=== PATIENT | male | born 1955 | race American Indian/Alaskan Native ===

== ENCOUNTER 2017-04-28 07:22 | Emergency (ER) | payer OTHER ==
[2017-04-28 07:36] VITALS: BP 144/80
[2017-04-28] MEDS ORDERED: TORADOL IM ONE (08:22)
--- NOTE | 2017-04-28 08:28 | Emergency Department Report ---
ED Back Pain/Injury HPI - General Chief Complaint: Back Pain/Injury Stated Complaint: LOWER BACK PAIN Time Seen by Provider: 04/28/17 08:06 Source: patient Mode of arrival: Ambulatory Limitations: No Limitations - History of Present Illness Initial Comments: PT c/o low back pain since Fri. PT denies injury or trauma. Pt states he was seen at and he was given two shots, one for pain and one steroid. PT states the shots helped for a few days but then his pain worsened. PT was given RX for Ultram and Flexeril. PT states he was dx with pinched nerve. PT states he was not given follow up. PT states no images were done. MD Complaint: back pain -: Gradual Similar Symptoms Previously: No Place: home Radiation: right leg Severity scale (0 -10): 6 Quality: burning Consistency: constant Improves With: medication (two injections at ) Worsens With: movement Context: unknown Associated Symptoms: numbness, nausea/vomiting (nausea after getting steroid shot). denies: difficulty urinating, incontinence, abdominal pain Treatments Prior to Arrival: prescription analgesics, other medications - Related Data Previous Rx's Medication Instructions Recorded Last Taken Type HYDROcodone/APAP 5-325 [Hoagland 1 each PO Q6HR PRN #10 tablet 04/28/17 Unknown Rx 5/325] Ibuprofen [Motrin] 600 mg PO Q8H PRN #15 tablet 04/28/17 Unknown Rx methOCARBAMOL [Robaxin TAB] 500 mg PO Q6H PRN #15 tablet 04/28/17 Unknown Rx Allergies Allergy/AdvReac Type Severity Reaction Status Date / Time No Known Allergies Allergy Unverified 04/28/17 07:26 ED Review of Systems ROS: Stated complaint: LOWER BACK PAIN Other details as noted in HPI Comment: All other systems reviewed and negative Constitutional: denies: fever Cardiovascular: denies: edema, syncope Gastrointestinal: nausea (after taking steroid shot). denies: vomiting Genitourinary: denies: urgency, dysuria, frequency Musculoskeletal: back pain Neurological: paresthesias ED Past Medical Hx - Past Medical History Previous Medical History?: No - Surgical History Past Surgical History?: No - Social History Smoking Status: Former Smoker Substance Use Type: None - Medications Home Medications: Home Medications Medication Instructions Recorded Confirmed Last Taken Type HYDROcodone/APAP 5-325 [Hoagland 1 each PO Q6HR PRN #10 tablet 12/11/17 Unknown Rx 5/325] Ibuprofen [Motrin] 600 mg PO Q8H PRN #15 tablet 04/28/17 Unknown Rx methOCARBAMOL [Robaxin TAB] 500 mg PO Q6H PRN #15 tablet 04/28/17 Unknown Rx ED Physical Exam - General Limitations: No Limitations General appearance: alert, in no apparent distress - Head Head exam: Present: atraumatic, normocephalic, normal inspection - Eye Eye exam: Present: normal appearance, PERRL, EOMI. Absent: conjunctival injection - ENT ENT exam: Present: normal exam, normal external ear exam - Neck Neck exam: Present: normal inspection, full ROM - Respiratory Respiratory exam: Present: normal lung sounds bilaterally. Absent: respiratory distress, wheezes, chest wall tenderness, accessory muscle use - Cardiovascular Cardiovascular Exam: Present: regular rate, normal rhythm, normal heart sounds - GI/Abdominal GI/Abdominal exam: Present: soft. Absent: tenderness, guarding, rebound - Extremities Exam Extremities exam: Present: normal inspection, full ROM. Absent: tenderness, calf tenderness - Back Exam Back exam: Present: normal inspection, full ROM, tenderness, muscle spasm, paraspinal tenderness - Expanded Back Exam Expanded Back exam: Absent: saddle anesthesia Back exam: Sciatic Notch Tenderness: Right, Negative Straight Leg Raising: Left , Right - Neurological Exam Neurological exam: Present: alert, oriented X3, abnormal gait (ambulates with slight limp) - Psychiatric Psychiatric exam: Present: normal affect, normal mood - Skin Skin exam: Present: warm, dry, intact ED Course Vital Signs 04/28/17 07:34 Temperature 98.4 F Pulse Rate 78 Respiratory 16 Rate Blood Pressure 144/80 [Left] O2 Sat by Pulse 98 Oximetry - Reevaluation(s) Reevaluation #1: 04/28/17 08:31 PT aware of plan of care. Reevaluation #2: 04/28/17 09:57 PT aware of XR results. PT requesting a steroid shot. PT aware he will need to follow up with PCP/Neurosurgeon for his lbp. Pt aware he may need an outpt MRI of L spine. PT has no questions at this time. Reevaluation #3: 04/28/17 10:10 PT states he has Tylenol #3 at home from old RX from his Dentist and it did not help his pain. PT's fill hx looked up in [place] [employer] aware web site. Tylenol #3 filled 01-23-17 and one time in November. - Pulse Oximetry Interpretation Digit-Finger Initial Pulse Oximetry Readin Actions Taken: none ED Medical Decision Making - Radiology Data Radiology results: report reviewed XR L spine - lumbar spondylosis - Differential Diagnosis strain, sciatica, Critical Care Time: No Critical care attestation.: If time is entered above; I have spent that time in minutes in the direct care of this critically ill patient, excluding procedure time. ED Disposition Clinical Impression: Low back pain Qualifiers: Chronicity: acute Back pain laterality: right Sciatica presence: with sciatica Sciatica laterality: sciatica of right side Qualified Code(s): M54.41 - Lumbago with sciatica, right side Disposition: TO HOME OR SELFCARE Is pt being admited?: No Does the pt Need Aspirin: No Condition: Stable Instructions: Sciatica (ED), Lumbar Radiculopathy (ED), Degenerative Disc Disease (ED) Additional Instructions: Follow up with PCP or Neurosurgery in 3-5 days Return to the ED if worsening symptoms, or concerns Stop Flexeril and Ultram No driving or ETOH after taking Robaxin or Hoagland Prescriptions: HYDROcodone/APAP 5-325 [Hoagland 5/325] 1 each PO Q6HR PRN #10 tablet PRN Reason: Pain Ibuprofen [Motrin] 600 mg PO Q8H PRN #15 tablet PRN Reason: Pain methOCARBAMOL [Robaxin TAB] 500 mg PO Q6H PRN #15 tablet PRN Reason: Muscle Spasm Referrals: PRIMARY CAREMD [Primary Care Provider] - 3-5 Days KIYA ABRAHAM MD [Staff Physician] - 3-5 Days HOLLY PRATHER MD [Staff Physician] - 3-5 Days [facility] [Outside] - 3-5 Days Forms: Work/School Release Form(ED) Time of Disposition: 10:13
[2017-04-28] MEDS ORDERED: TORADOL ONE (08:45)
--- NOTE | 2017-04-28 09:01 | XRay Report ---
LUMBOSACRAL SPINE, 3 VIEWS: History: Back pain Findings: Normal bone mineralization. No evidence for compression deformity, displaced fracture or subluxation. There is straightening of the normal lordosis. Severe degenerative disc disease and moderate facet arthropathy is identified at L3-4. There are moderate degenerative changes at the remaining levels. Mild symmetric joint changes at the SI joints. Impression: Lumbar spondylosis.
== END 2017-04-28 10:50 | disposition home or self-care (01) ==
LOC: ED 07:22
DX: M54.41 Lumbago with sciatica, right side (principal)
CPT/HCPCS: 72100; 96372; 99283; J1885; J2930